=== PATIENT | female | born 1960 | race Caucasian/White ===

== ENCOUNTER → 2019-09-19 | Outpatient (CLI) | payer OTHER ==
[2019-09-19 16:22] LABS: HCT 38.4 % (34.0-46.0); HGB 12.3 gm/dL (11.4-16.0); MCH 28.3 pg (25.0-35.0); MCHC 31.9 g/dL (31.0-37.0); MCV 88.7 fL (80.0-100.0); Mean Platelet Volume 8.1; Platelet Count 210 k/uL (150-450); RBC 4.33 m/uL (3.80-5.40); RDW 13.8 % (11.5-15.5); WBC 10.2 k/uL (3.8-10.6)
== END | disposition home or self-care (01) ==
LOC: LABWHC1 14:44
PROVIDERS: ATTEND Family Medicine Adult Medicine
DX: N93.9 Abnormal uterine and vaginal bleeding, unspecified (principal)
CPT/HCPCS: 36415; 85027

== ENCOUNTER 2019-11-28 14:45 | Emergency (ER) | payer OTHER ==
[2019-11-28 15:50] LABS: Appearance,Urine Cloudy (Clear); Bacteria,Urine Rare /hpf; Bilirubin,Urine Negative (Negative); Blood,Urine Large (Negative); Color,Urine Yellow; Glucose,Urine (UA) 4+ (Negative); Ketones,Urine Negative (Negative); Leukocyte Esterase,Urine Large (Negative); Mucus,Urine Rare /hpf; Nitrite,Urine Negative (Negative); PH, Urine 5.5 (5.0-8.0); Protein,Urine Trace (Negative); RBC,Urine 77 /hpf (0-5); Specific Gravity,Urine 1.016 (1.001-1.035); Squamous Epithelial Cell,Urine 4 /hpf (0-4); Urobilinogen,Urine <2.0 mg/dL (<2.0); WBC,Urine 83 /hpf (0-5)
[2019-11-28] MEDS ORDERED: KETOROLAC 15 MG/ML 1 ML VIAL IVP STA (15:57)
[2019-11-28] MEDS ORDERED: SODIUM CHLORIDE 0.9% 500 ML 500 ML IV STA (15:57)
[2019-11-28 16:27] LABS: Basophils # (A) 0.1 k/uL (0-0.2); Basophils % (A) 1 %; Eosinophils # (A) 0.4 k/uL (0-0.7); Eosinophils % (A) 3 %; HCT 40.6 % (34.0-46.0); HGB 12.8 gm/dL (11.4-16.0); Lymphocytes # (A) 3.8 k/uL (1.0-4.8); Lymphocytes % (A) 36 %; MCH 27.8 pg (25.0-35.0); MCHC 31.6 g/dL (31.0-37.0); MCV 87.9 fL (80.0-100.0); Monocytes # (A) 0.4 k/uL (0-1.0); Monocytes % (A) 4 %; Neutrophils # (A) 5.6 k/uL (1.3-7.7); Neutrophils % (A) 53 %; Platelet Count 202 k/uL (150-450); RBC 4.62 m/uL (3.80-5.40); RDW 13.5 % (11.5-15.5); WBC 10.5 k/uL (3.8-10.6)
[2019-11-28 16:38] LABS: ALT 32 U/L (4-34); AST 32 U/L (14-36); African American GFR (CKD) >90 (>60 ml/min/1.73 sqM); Albumin 4.2 g/dL (3.5-5.0); Alkaline Phosphatase 116 U/L (38-126); Anion Gap 10 mmol/L; Blood Urea Nitrogen 18 mg/dL (7-17); Carbon Dioxide 23 mmol/L (22-30); Chloride 101 mmol/L (98-107); Glucose 269 mg/dL (74-99); Lipase 131 U/L (23-300); Non-African American GFR(CKD) >90 (>60 ml/min/1.73 sqM); Potassium 4.5 mmol/L (3.5-5.1); Sodium 134 mmol/L (137-145); Total Bilirubin 0.6 mg/dL (0.2-1.3); Total Protein 7.3 g/dL (6.3-8.2)
--- NOTE | 2019-11-28 16:47 | XR ---
EXAMINATION TYPE: XR knee 4V LT DATE OF EXAM: 11/28/2019 CLINICAL HISTORY: Pain. TECHNIQUE: Three views of the left knee are obtained. A fourth sunrise view. COMPARISON: None. FINDINGS: There is no acute fracture/dislocation evident in left knee. Moderate narrowing with mild spurring patellofemoral compartment. [id number] narrowing medial tibiofemoral compartment. Mild narrowing lateral tibiofemoral compartment . Patellar articulation satisfactory on the sunrise view. Overlying clothing material is present. IMPRESSION: As above.
--- NOTE | 2019-11-28 16:48 | XR ---
EXAMINATION TYPE: XR lumbar spine 2 or 3V DATE OF EXAM: 11/28/2019 CLINICAL HISTORY: Left flank and back pain. TECHNIQUE: Frontal and lateral images of the lumbar spine are obtained. COMPARISON: None FINDINGS: There are 6 lumbar type vertebral bodies identified. The lumbar spine shows slight techni monico convex scoliotic curvature centered at L3-L4 level without evidence of acute fracture or dislocat ion. There is straightening of lumbar spine on lateral images. Vertebral body heights and disc space heights are fairly well-maintained. [id number] multilevel anterior and lateral spurring. Facet arthropathy in lower lumbar levels is present. IMPRESSION: As above.
[2019-11-28] MEDS ORDERED: SODIUM CHLORIDE 0.9% 500 ML 500 ML IV ONE (16:51)
[2019-11-28 17:34] VITALS: RESP 18
--- NOTE | 2019-11-28 18:00 | CT ---
EXAMINATION TYPE: CT abdomen pelvis w con DATE OF EXAM: 11/28/2019 COMPARISON: NONE HISTORY: 59-year-old female abdominal/flank pain TECHNIQUE: Contiguous axial scanning of the abdomen and pelvis following administration of 100 ml Iso shena 300 IV contrast. Delayed images through the kidneys and coronal/sagittal reconstructions perform ed. CT DLP: 2845.4 mGycm Automated exposure control for dose reduction was used. FINDINGS: LUNG BASES: No significant abnormality is appreciated. Tiny hiatal hernia. LIVER/GB: Liver enlarged at 23.1 cm with low attenuation. Portal venous system is patent. No biliary ductal dilatation. Gallbladder is collapsed. PANCREAS: No significant abnormality is seen. SPLEEN: No significant abnormality is seen. ADRENALS: No significant abnormality is seen. KIDNEYS: No excretion of contrast from the kidneys on delayed kidney images. Symmetric uptake is pres ent. LYMPH NODES: No mesenteric or retroperitoneal lymphadenopathy. Scattered nonenlarged mesenteric lymp h nodes are present measuring up to 4 to 5 mm. BOWEL: No dilated small bowel, free fluid, free air. There are couple loops of jejunum in the left lateral abdomen, for example, coronal image 65 that shows mild diffuse fold thickening. Normal appendix. No significant stool burden. Mild diverticular change proximal sigmoid. No pericolon ic inflammatory change. PELVIS: Bladder partially distended. Multiple pelvic fluid was. Uterus anteverted. Small bilateral ov adis. No abnormal fluid collection in the pelvis or pelvic lymphadenopathy. BONES: Degenerative changes at the hips. Hypertrophic facet arthropathy lower lumbar spine. Right L5 pars interarticularis defect noted. IMPRESSION: 1. A COUPLE LEFT MID ABDOMINAL JEJUNAL LOOPS SHOW FOLD THICKENING. CORRELATE FOR NONSPECIFIC MILD ENT ERITIS. 2. HEPATOMEGALY (23.1 CM) WITH HEPATIC STEATOSIS. 3. NO EXCRETION OF CONTRAST ON THE DELAYED KIDNEY IMAGES. THIS MAY BE SECONDARY TO TIMING OF THE SCAN . CORRELATE TO EXCLUDE DEBBI. 4. TINY HIATAL HERNIA.
--- NOTE | 2019-11-28 18:35 | ED ---
General Adult HPI - General Source: patient, RN notes reviewed, old records reviewed Mode of arrival: ambulatory Limitations: no limitations <Eitan Celaya - Last Filed: 11/28/19 19:14> <Rosalee King - Last Filed: 12/03/19 07:49> - General Chief complaint: Back Pain/Injury Stated complaint: back pain Time Seen by Provider: 11/28/19 15:27 - History of Present Illness Initial comments: 59-year-old female patient came to ED for chief complaint of left lumbar back pain. Ongoing for the last week. Patient also reports some left flank pain. Denies any paresthesias of loss of bowel or bladder control weakness. Reports that [place] and got worse. Patient states that it feels somewhat similar to kidney infection she had before in the past. Patient also reports that when ambulating she has pain in the anterior aspect of her left knee but the last week. Denies any posterior leg pain. Denies any chest pain shortness of breath. Denies any dysuria. Patient also reports that the last 2 months she's been having monthly postmenopausal bleed at the time when her normal menses would be. Patient reports that she had an outpatient ultrasound by her primary care provider about 3 weeks ago which did display some endometrial thickening which was reportedly not different from about 10 years ago. Patient process of following up with [employer]. Systemic: Pt denies fatigue, fever/chills, rash. Pt denies weakness, night sweats, weight loss. Neuro: Pt denies headache, visual disturbances, syncope or pre-syncope. HEENT: Pt denies ocular discharge or irritation, otalgia, rhinorrhea, pharyngitis or notable lymphadenopathy. Cardiopulmonary: Pt denies chest pain, SOB, heart palpitations, dyspnea on exertion. Abdominal/GI: Pt denies abdominal pain, n/v/d. : Pt denies dysuria, burning w/ urination, frequency/urgency. Denies new onset urinary or bowel incontinence. Neuro: Pt denies new onset weakness, paresthesias. (Eitan Celaya) - Related Data Previous Rx's Medication Instructions Recorded Cephalexin [Keflex] 500 mg PO Q6HR 10 Days #40 cap 11/28/19 Allergies Allergy/AdvReac Type Severity Reaction Status Date / Time No Known Allergies Allergy Verified 11/28/19 15:09 Review of Systems ROS Other: All systems not noted in ROS Statement are negative. <Eitan Celaya - Last Filed: 11/28/19 19:14> ROS Other: All systems not noted in ROS Statement are negative. <Rosalee King - Last Filed: 12/03/19 07:49> ROS Statement: Those systems with pertinent positive or pertinent negative responses have been documented in the HPI. Past Medical History Past Medical History: Diabetes Mellitus, Hypertension History of Any Multi-Drug Resistant Organisms: None Reported Past Surgical History: No Surgical Hx Reported Additional Past Surgical History / Comment(s): D&C Past Psychological History: No Psychological Hx Reported Smoking Status: Never smoker Past Alcohol Use History: None Reported Past Drug Use History: None Reported <Eitan Celaya - Last Filed: 11/28/19 19:14> General Exam Limitations: no limitations <Eitan Celaya - Last Filed: 11/28/19 19:14> - General Exam Comments Initial Comments: Constitutional: NAD, AOX3, Pt has pleasant affect. HEENT: NC/AT, trachea midline, neck supple, no lymphadenopathy. Posterior pharynx non erythematous, without exudates. External ears appear normal, without discharge. Mucous membranes moist. Eyes PERRLA, EOM intact. There is no scleral icterus. No pallor noted. Cardiopulmonary: RRR, no murmurs, rubs or gallops, no JVD noted. Lungs CTAB in anterior and posterior pavon. No peripheral edema. Abdominal exam: Abdomen soft and non-distended. Abdomen non-tender to palpation in all 4 quadrants. Bowel sounds active in LLQ. No hepatosplenomegaly. No ecchymosis Neuro: CN II-XII grossly intact. No nuchal rigidity. No raccon eyes, no palencia sign, no hemotympanum. No cervical spinal tenderness. MSK: Left anterior knee nontender to palpation. No skin changes. Mild amount of left paralumbar tenderness. Straight leg raise is negative. Strength intact psoas quadriceps muscles. No posterior calf tenderness bilaterally, homans sign negative bilaterally. Posterior tibialis and radial pulse +2 bilaterally. Sensation intact in upper and lower extremities. Full active ROM in upper and lower extremities, 5/5 stregnth. (Eitan Celaya) Course Vital Signs 11/28/19 11/28/19 11/28/19 15:05 15:09 17:34 Temperature 99.2 F Pulse Rate 91 85 Respiratory 16 18 Rate Blood Pressure 168/111 136/64 O2 Sat by Pulse 98 97 Oximetry 11/28/19 11/28/19 18:45 20:01 Temperature 99 F Pulse Rate 82 Respiratory 18 18 Rate Blood Pressure 136/84 128/74 O2 Sat by Pulse 97 97 Oximetry Medical Decision Making - Lab Data Result diagrams: 11/28/19 16:13 11/28/19 16:13 <Eitan Celaya - Last Filed: 11/28/19 19:14> - Lab Data Result diagrams: 11/28/19 16:13 11/28/19 16:13 <Rosalee King - Last Filed: 12/03/19 07:49> - Medical Decision Making 59-year-old female patient presents to ED for chief complaint left paralumbar pain / flank pain. Physical exam displayed mild amount of left Lumbar tenderness. Laboratory investigations obtained display possibly urinary tract infection patient does have large leukocyte esterase but also blood. Nitrite negative. Labs are otherwise unremarkable with exception of hyperglycemia. Plain film of the displayed moderate narrowing mild spurring patellofemoral compartment. Mild to moderate be due to poor oral compartment. Mild narrowing lateral tibiofemoral content. CT abdomen and pelvis displayed possible nonspecific mild enteritis. No dye excretion. Kidneys possibly due to timing. Tiny hiatal hernia. There was a right L5 pars reticularis defects noted. Patient will be discharged with antibiotics. Follow up with primary care provider or orthopedics will return here if condition worsens. Case disc ussed with Dr. King. (Eitan Celaya) I was available for consultation in the emergency department. The history and physical exam were done by the midlevel provider. I was consulted for this patients care. I reviewed the case with the midlevel provider and based on their presentation of the patient, I agree with the assessment, medical decision making and plan of care as documented. Chart was dictated using [employer] dictation software. Attempts were made to correct any dictation errors however some typographical errors may persist. (Rosalee King) - Lab Data Lab Results 11/28/19 11/28/19 11/28/19 Range/Units 15:32 16:13 16:13 WBC 10.5 (3.8-10.6) k/uL RBC 4.62 (3.80-5.40) m/uL Hgb 12.8 (11.4-16.0) gm/dL Hct 40.6 (34.0-46.0) % MCV 87.9 (80.0-100.0) fL MCH 27.8 (25.0-35.0) pg MCHC 31.6 (31.0-37.0) g/dL RDW 13.5 (11.5-15.5) % Plt Count 202 (150-450) k/uL Neutrophils % 53 % Lymphocytes % 36 % Monocytes % 4 % Eosinophils % 3 % Basophils % 1 % Neutrophils # 5.6 (1.3-7.7) k/uL Lymphocytes # 3.8 (1.0-4.8) k/uL Monocytes # 0.4 (0-1.0) k/uL Eosinophils # 0.4 (0-0.7) k/uL Basophils # 0.1 (0-0.2) k/uL Sodium 134 L (137-145) mmol/L Potassium 4.5 (3.5-5.1) mmol/L Chloride 101 (98-107) mmol/L Carbon Dioxide 23 (22-30) mmol/L Anion Gap 10 mmol/L BUN 18 H (7-17) mg/dL Creatinine 0.70 (0.52-1.04) mg/dL Est GFR (CKD-EPI)AfAm >90 (>60 ml/min/1.73 sqM) Est GFR (CKD-EPI)NonAf >90 (>60 ml/min/1.73 sqM) Glucose 269 H (74-99) mg/dL Plasma Lactic Acid Howie (0.7-2.0) mmol/L Calcium 10.0 (8.4-10.2) mg/dL Total Bilirubin 0.6 (0.2-1.3) mg/dL AST 32 (14-36) U/L ALT 32 (4-34) U/L Alkaline Phosphatase 116 (38-126) U/L Total Protein 7.3 (6.3-8.2) g/dL Albumin 4.2 (3.5-5.0) g/dL Lipase 131 (23-300) U/L Urine Color Yellow Urine Appearance Cloudy H (Clear) Urine pH 5.5 (5.0-8.0) Ur Specific [place] 1.016 (1.001-1.035) Urine Protein Trace H (Negative) Urine Glucose (UA) 4+ H (Negative) Urine Ketones Negative (Negative) Urine Blood Large H (Negative) Urine Nitrite Negative (Negative) Urine Bilirubin Negative (Negative) Urine Urobilinogen <2.0 (<2.0) mg/dL Ur Leukocyte Esterase Large H (Negative) Urine RBC 77 H (0-5) /hpf Urine WBC 83 H (0-5) /hpf Ur Squamous Epith Cells 4 (0-4) /hpf Urine Bacteria Rare H (None) /hpf Urine Mucus Rare H (None) /hpf 11/28/19 Range/Units 16:13 WBC (3.8-10.6) k/uL RBC (3.80-5.40) m/uL Hgb (11.4-16.0) gm/dL Hct (34.0-46.0) % MCV (80.0-100.0) fL MCH (25.0-35.0) pg MCHC (31.0-37.0) g/dL RDW (11.5-15.5) % Plt Count (150-450) k/uL Neutrophils % % Lymphocytes % % Monocytes % % Eosinophils % % Basophils % % Neutrophils # (1.3-7.7) k/uL Lymphocytes # (1.0-4.8) k/uL Monocytes # (0-1.0) k/uL Eosinophils # (0-0.7) k/uL Basophils # (0-0.2) k/uL Sodium (137-145) mmol/L Potassium (3.5-5.1) mmol/L Chloride (98-107) mmol/L Carbon Dioxide (22-30) mmol/L Anion Gap mmol/L BUN (7-17) mg/dL Creatinine (0.52-1.04) mg/dL Est GFR (CKD-EPI)AfAm (>60 ml/min/1.73 sqM) Est GFR (CKD-EPI)NonAf (>60 ml/min/1.73 sqM) Glucose (74-99) mg/dL Plasma Lactic Acid Howie 2.0 (0.7-2.0) mmol/L Calcium (8.4-10.2) mg/dL Total Bilirubin (0.2-1.3) mg/dL AST (14-36) U/L ALT (4-34) U/L Alkaline Phosphatase (38-126) U/L Total Protein (6.3-8.2) g/dL Albumin (3.5-5.0) g/dL Lipase (23-300) U/L Urine Color Urine Appearance (Clear) Urine pH (5.0-8.0) Ur Specific [place] (1.001-1.035) Urine Protein (Negative) Urine Glucose (UA) (Negative) Urine Ketones (Negative) Urine Blood (Negative) Urine Nitrite (Negative) Urine Bilirubin (Negative) Urine Urobilinogen (<2.0) mg/dL Ur Leukocyte Esterase (Negative) Urine RBC (0-5) /hpf Urine WBC (0-5) /hpf Ur Squamous Epith Cells (0-4) /hpf Urine Bacteria (None) /hpf Urine Mucus (None) /hpf Disposition Is patient prescribed a controlled substance at d/c from ED?: No <Eitan Celaya - Last Filed: 11/28/19 19:14> <Rosalee King - Last Filed: 12/03/19 07:49> Clinical Impression: UTI (urinary tract infection), Back pain, Knee pain Disposition: HOME SELF-CARE Condition: Stable Instructions (If sedation given, give patient instructions): Urinary Tract Infection in Women (ED), Acute Low Back Pain (ED) Additional Instructions: Follow up with primary care provider and orthopedic surgeon tomorrow. Continue to monitor blood sugar at home. Return to ER if any worsening symptoms. Take antibiotics as directed. Prescriptions: Cephalexin [Keflex] 500 mg PO Q6HR 10 Days #40 cap Referrals: Rolan Rey MD [Primary Care Provider] - 1-2 days Coleman Kaiser PAC [PHYSICIAN CONCRETE FOREMAN] - 1-2 days
[2019-11-28] MEDS ORDERED: ACET/COD 300 MG/30 MG STARTER PACK 6 TAB BTL PO STA (19:16)
[2019-11-28] MEDS ORDERED: CEPHALEXIN 500MG STARTER PACK 4 CAP BTL PO STA (19:16)
[2019-11-28] MEDS ORDERED: HYDROcodone/APAP 7.5-325MG 1 EACH TAB PO ONE (19:16)
[2019-11-28 20:01] VITALS: BP 128/74; PULSE 82; TEMP 99
== END 2019-11-28 20:01 | disposition home or self-care (01) ==
LOC: EC 14:45
DX: M43.06 Spondylolysis, lumbar region (principal); N39.0 Urinary tract infection, site not specified; R73.9 Hyperglycemia, unspecified; K44.9 Diaphragmatic hernia without obstruction or gangrene; M22.2X2 Patellofemoral disorders, left knee; M25.862 Other specified joint disorders, left knee
CPT/HCPCS: 36415; 80053; 83605; 83690; 85025; 81001; 87086; 72100; 73564; 74177; 99284; 96365; 96375; 96361 ×2; J0696; J1885; Q9967

== ENCOUNTER 2023-10-05 17:53 | Emergency (ER) | payer MEDICARE, OTHER ==
[2023-10-05 18:06] VITALS: RESP 20
--- NOTE | 2023-10-05 18:34 | ED ---
Skin/Abscess/FB HPI - General Source: patient, RN notes reviewed Mode of arrival: ambulatory Limitations: no limitations <Leila Wharton - Last Filed: 10/05/23 18:33> - General Source: patient, RN notes reviewed Mode of arrival: ambulatory Limitations: no limitations <Katey Fragoso - Last Filed: 10/05/23 22:44> - General Chief complaint: Skin/Abscess/Foreign Body Stated complaint: Irritated cyst Time Seen by Provider: 10/05/23 18:33 - History of Present Illness Initial comments: Quick [id number] female with history of diabetes presenting to the ER with chief complaint of abscess under right arm. She noticed today there was drainage from the area. Denies fevers, chills, vomiting. (Leila Wharton) 63-year-old female presented to ER with a chief complaint of right axilla pain. She states for the past couple of years she has had a cyst in that area but for the past year she has been noticing increase in size. She states for the past week she is noting erythema and today purulent drainage from the area. She states is extremely painful to move her arm due to the abscess. She is a known diabetic. She denies any fevers, chills or night sweats. (Katey Fragoso) - Related Data Previous Rx's Medication Instructions Recorded Cephalexin [Keflex] 500 mg PO Q6HR 10 Days #40 cap 11/28/19 Sulfamethox-Tmp 800-160Mg [Bactrim 1 each PO Q12HR 7 Days #14 tab 10/05/23 Ds] Allergies Allergy/AdvReac Type Severity Reaction Status Date / Time Iodinated Contrast Media Allergy Anaphylaxis Verified 10/05/23 18:06 Review of Systems ROS Other: All systems not noted in ROS Statement are negative. <Leila Wharton - Last Filed: 10/05/23 18:33> ROS Other: All systems not noted in ROS Statement are negative. <Katey Fragoso - Last Filed: 10/05/23 22:44> ROS Statement: Those systems with pertinent positive or pertinent negative responses have been documented in the HPI. Past Medical History Past Medical History: Diabetes Mellitus, Hyperlipidemia, Hypertension History of Any Multi-Drug Resistant Organisms: None Reported Past Surgical History: No Surgical Hx Reported Additional Past Surgical History / Comment(s): D&C Past Psychological History: No Psychological Hx Reported Smoking Status: Never smoker Past Alcohol Use History: None Reported Past Drug Use History: None Reported <Leila Wharton - Last Filed: 10/05/23 18:33> General Exam Limitations: no limitations <Livier Whartonna - Last Filed: 10/05/23 18:33> General appearance: alert, in no apparent distress Respiratory exam: Present: normal lung sounds bilaterally. Absent: respiratory distress, wheezes, rales, rhonchi, stridor Cardiovascular Exam: Present: regular rate, normal rhythm, normal heart sounds. Absent: systolic murmur, diastolic murmur, rubs, gallop, clicks Skin exam: Present: other (8x8 cm fluctuant erythematous region to left posterior axilla. Tender to touch. Left upper extremity neurovascular intact.) <Katey Fragoso - Last Filed: 10/05/23 22:44> - General Exam Comments Initial Comments: Visual Physical Exam Vital signs reviewed General: Well-appearing, nontoxic, no acute distress. Head: Normocephalic, atraumatic Eyes: PERRLA, EOMI ENT: Airway patent Chest: Nonlabored breathing Skin: No visual rash, normal skin tone Neuro: Alert and oriented 3 Musculoskeletal: No gross abnormalities (Leila Wharton) Course Vital Signs 10/05/23 18:03 Temperature 98.1 F Pulse Rate 83 Respiratory 20 Rate Blood Pressure 171/77 O2 Sat by Pulse 99 Oximetry Procedures - Incision & Drainage Consent Obtained: verbal consent Indication: abscess Site: back (left) Size (cm): 10 Anesthetic Used: lidocaine 1%, without epi Amount (mLs): 6 I&D Cleaning Method: Alcohol Wipe Sterile Field Used?: Yes Scalpel Used: #11 Ultrasound used: No Needle Aspiration Performed?: No Irrigation Performed?: No I&D Drainage Obtained: Pus, Blood Loculation Noted: probing needed to break Insertion of drain: No Culture Obtained?: No Patient Tolerated Procedure: well, no complications <Katey Fragoso - Last Filed: 10/05/23 22:44> Medical Decision Making <Leila Wharton - Last Filed: 10/05/23 18:33> <Katey Fragoso - Last Filed: 10/05/23 22:44> - Medical Decision Making I completed the quick note portion of this chart signed to Leila Wharton PA-C (Leila Wharton) Was pt. sent in by a medical professional or institution (HEENA Mittal, [employer], urgent care, hospital, or fdc...) When possible be specific @ -No Did you speak to anyone other than the patient for history (EMS, parent, family, police, friend...)? What history was obtained from this source @ -No Did you review nursing and triage notes (agree or disagree)? Why? @ -I reviewed and agree with nursing and triage notes Were old charts reviewed (outside hosp., previous admission, EMS record, old EKG, old radiological studies, urgent care reports/EKG's, fdc records)? Report findings @ -No old charts were reviewed Differential Diagnosis (chest pain, altered mental status, abdominal pain women, abdominal pain men, vaginal bleeding, weakness, fever, dyspnea, syncope, headache, dizziness, GI bleed, back pain, seizure, CVA, palpatations, mental health, musculoskeletal)? @ -Cellulitis, abscess, sepsis less abdominal to be all-inclusive EKG interpreted by me (3pts min.). @ -None X-rays interpreted by me (1pt min.). @ -None done CT interpreted by me (1pt min.). @ -None done U/S interpreted by me (1pt. min.). @ -None done What testing was considered but not performed or refused? (CT, X-rays, U/S, labs)? Why? @ -None What meds were considered but not given or refused? Why? @ -None Did you discuss the management of the patient with other professionals (professionals i.e. HEENA Mittal, [employer], lab, RT, psych nurse, social media executive, sheet metal duct installer apprentice, teacher, chemical instrumentation officer, upper caser)? Give summary @ -No Was smoking cessation discussed for >3mins.? @ -No Was critical care preformed (if so, how long)? @ -No Were there social determinants of health that impacted care today? How? (Homelessness, low income, unemployed, alcoholism, drug addiction, transportation, low edu. Level, literacy, decrease access to med. care, group home, rehab)? @ -No Was there de-escalation of care discussed even if they declined (Discuss DNR or withdrawal of care, Hospice)? DNR status @ -No What co-morbidities impacted this encounter? (DM, HTN, Smoking, COPD, CAD, Cancer, CVA, ARF, Chemo, Hep., AIDS, mental health diagnosis, sleep apnea, morbid obesity)? @ -Diabetes/obese Was patient admitted / discharged? Hospital course, mention meds given and route, prescriptions, significant lab abnormalities, going to OR and other pertinent info. @ -Discharge. 63-year-old female presented to ER with a chief complaint of left axilla pain. History and physical exam completed. Vitals stable. Exam significant for an tender 8 x 8 cm fluctuant erythematous area to the left posterior axilla concerning of abscess. I&D performed and remarkable for a significant amount of purulent drainage. Loculations present. Patient was started on Bactrim, first dose in the ER. Advised warm compresses and massage. Advise close follow-up with PCP early next week. Return parameters discussed. Patient discharged in stable condition. Case discussed with ED attending, Dr. Meyers. Undiagnosed new problem with uncertain prognosis? @ -No Drug Therapy requiring intensive monitoring for toxicity (Heparin, Nitro, Insulin, Cardizem)? @ -No Were any procedures done? @ -Yes I&D Diagnosis/symptom? @ -Abscess Acute, or Chronic, or Acute on Chronic? @ -Acute Uncomplicated (without systemic symptoms) or Complicated (systemic symptoms)? @ -Uncomplicated Side effects of treatment? @ -No Exacerbation, Progression, or Severe Exacerbation? @ -No Poses a threat to life or bodily function? How? (Chest pain, [place], [place], pneumonia, PE, COPD, DKA, ARF, appy, cholecystitis, CVA, Diverticulitis, Homicidal, Suic idal, threat to staff... and all critical care pts) @ -No (Katey Fragoso) Disposition <Leila Wharton - Last Filed: 10/05/23 18:33> Is patient prescribed a controlled substance at d/c from ED?: No Time of Disposition: 21:47 <Katey Fragoso - Last Filed: 10/05/23 22:44> Clinical Impression: Abscess Disposition: HOME SELF-CARE Condition: Stable Instructions (If sedation given, give patient instructions): Abscess Incision and Drainage (ED) Additional Instructions: Continue to use warm compresses and massage area. Complete full course of Bactrim. You may take [id number] Tylenol and Motrin for pain control. Follow-up with primary care physician early next week. Return to the ER for any new or worsening concerns. Prescriptions: Sulfamethox-Tmp 800-160Mg [Bactrim Ds] 1 each PO Q12HR 7 Days #14 tab Referrals: Rolan Rey MD [Primary Care Provider] - 1-2 days Forms: Area [facility]
[2023-10-05] MEDS: LIDOCAINE 1% INJ 10MG/ML (20 ML MDV) SQ ONE (20:18)
[2023-10-05] MEDS: SULFAMETHOX-TMP 800-160MG 1 EACH TAB PO STA (22:19)
[2023-10-05 22:45] VITALS: BP 154/72; PULSE 74; TEMP 98.3
== END 2023-10-05 22:45 | disposition home or self-care (01) ==
LOC: EC 17:53
DX: L02.412 Cutaneous abscess of left axilla (principal); E11.9 Type 2 diabetes mellitus without complications; E66.9 Obesity, unspecified; Z68.41 Body mass index [BMI] 40.0-44.9, adult; Z91.041 Radiographic dye allergy status
CPT/HCPCS: 10060; 99282; J2001